=== PATIENT | female | born 1965 | race Caucasian/White ===

== ENCOUNTER 2022-09-19 11:12 | Outpatient (REF) | payer OTHER, SELFPAY ==
--- NOTE | 2022-09-19 08:00 | EMG_ITS ---
Bilateral median and ulnar motor and sensory studies were performed. Bilateral radial sensory studies were performed and paraspinal muscles were tested with a needle. IMPRESSION: 1. Mild to moderate, right more than left, bilateral median neuropathy across carpal tunnel. 2. Mild bilateral ulnar neuropathy across cubital tunnel. MD GEORGIA Ramirez/[place] / [id number]
== END 2022-09-19 11:13 | disposition home or self-care (01) ==
LOC: HO.NEURO 11:12
PROVIDERS: Visit Provider Internal Medicine
DX: R20.2 Paresthesia of skin (principal)
CPT/HCPCS: 95886; 95911